=== PATIENT | male | born 1960 | race Caucasian/White ===

== ENCOUNTER 2016-11-12 19:59 | Observation (INO) | payer MEDICARE, MEDICAID ==
[~2016-11-12] VITALS: Ht 179.1 cm; Wt 111.7 kg
[2016-11-12 20:06] VITALS: BP 146/94; PULSE 82; RESP 16; O2SAT 95
--- NOTE | 2016-11-12 20:16 | ED.REPORT ---
HPI-Stroke / CVA Nov 12, 2016 ED Provider: Dr. Pulido Pt is a 56 y/o male w/ a hx of CVA, [place] x2 s/p stenting, presenting to the ED with his girlfriend due to intermittent slurred speech onset 3 days ago. The pt has been experiencing slurred speech of waxing and waning severity for the past 3 days with an associated intermittent moderate-severe headache for 2 days, mild left facial droop, mild confusion without disorientation. According to his girlfriend, his speech was unintelligible yesterday and this morning and much improved at time of interview. He denies focal numbness or weakness, aphasia, problem walking, vision change, CP, SOB, abdominal pain, fever, chills. He is not anticoagulated, he missed his aspirin dose today. Nursing Notes Stated Complaint: POSSIBLE STROKE SYMPTOMS/SLURRING WORDS Chief Complaint: Stroke Symptoms Nursing Notes Reviewed: Yes Allergies: Coded Allergies: Penicillins (Verified Allergy, Unknown, 11/12/16) Sulfa (Sulfonamide Antibiotics) (Verified Allergy, Unknown, 11/12/16) Scheduled Aspirin Chew (Aspirin Chew) 81 Mg Chew 81 MG PO DAILY Atorvastatin (Lipitor) 80 Mg Tablet 80 MG PO DAILY Fenofibrate Nanocrystallized (Fenofibrate) 145 Mg Tablet 145 MG PO DAILY Haloperidol (Haloperidol) 10 Mg Tablet 10 MG PO BID (Reported) Metoprolol Succinate ER (Metoprolol Succinate ER) 50 Mg Tab.er.24h 50 MG PO DAILY Quetiapine Fumarate (Quetiapine Fumarate) 100 Mg Tablet 100 MG PO HS (Reported) Scheduled PRN Clonazepam (Clonazepam) 1 Mg Tablet 1 MG PO BID PRN PRN For Anxiety (Reported) Nitroglycerin SL (Nitroglycerin SL) 0.4 Mg Tab.subl 0.4 MG SL q15 min PRN PRN pa PRN for chest pain, may repeat every 15 minutes 3. General Time Seen by Provider: 20:16 Chief Complaint Slurred speech Hx Obtained From: Patient, Spouse Arrived By: Walk-in Time last known well 11/09/16 Sudden in Onset?: No Symptom Duration: Waxes and wanes Progression Since Onset: Intermittent Location: : Head Quality: Aching Severity: Current: Mild Severity: Maximum: Moderate Risk Factors NIH Stroke Scale Level of Consciousness: Alert and responsive (0) Ask Month & Age: Both questions right (0) Open/Close Eyes/Hand Manager Spanish: Performs both tasks (0) Horizontal EO Movements: None (0) Visual Rios: No visual loss (0) Facial Palsy: Minor paralysis (1) Right Arm Motor Drift (10s): No drift 10 sec (0) Left Arm Motor Drift (10s): No drift 10 sec (0) Right Leg Motor Drift (5s): No drift 5 sec (0) Left Leg Motor Drift (5s): No drift 5 sec (0) Limb Ataxia FNF/Heel-Cornejo: No ataxia (0) Sensation (Arms/Legs/Face): No sensory loss (0) Language Aphasia: No aphasia, normal (0) Dysarthria: Slurring intelligible (1) Extinction/Inattention: No exctinct/inattent (0) NIHSS Score: 2 Time NIHSS Performed: 20:51 Date NIHSS Performed: Nov 12, 2016 Past Medical History Past Medical History Strokes [place] x2 CAD s/p stents x2 Schizophrenia Hx childhood seizures Past Surgical History Cardiac stents x2 Smoking History Former Smoker Social History Alcohol Use: Denies alcohol use Drug Use: THC Ambulatory Status Independent Review of Systems Review of Systems Note: + left facial droop Constitutional: Denies: Chills, Fever Respiratory: Denies: Shortness of breath Cardiovascular: Denies: Chest pain GI: Denies: Abdominal pain Neurologic: Reports: Confusion, Headache, Slurred speech, Denies: Abnormal movement, Bladder dysfunction, Bowel dysfunction, Change LOC , Dizziness, Focal weakness, Lightheaded, Numbness, Problem walking, Seizure, Shaking, Spinning sensation, Syncope, Unable to speak, Weakness Complete sys rev & neg: except as marked. Physical Exam Initial Vital Signs Initial VS: Reviewed, Vital signs normal ENT: Mucous membranes moist, Conjunctiva normal, No scleral icterus Abdomen / GI: Soft, Non-tender, No guarding, No rebound, No distention Extremities: Vascular intact, Neuro intact, No swelling, No tenderness Skin: Warm, Dry, No cyanosis Psychiatric: Mood/affect normal, Behavior normal, Normal thought content General/Constitutional: Awake, Alert, No acute distress, Cooperative, Not toxic appearing Head / Eyes: Atraumatic, Normocephalic, PERRL, EOMI Neck: Atraumatic, Supple, Full range of motion Respiratory / Chest: Atraumatic, Breath sounds NL, Breath sounds = bilat, No respiratory distress, No rales, No rhonchi, No wheezing, No retractions, No stridor, No chest tenderness, No chest wall deformity, No crepitus Cardiovascular: Heart rate NL, Regular rhythm, Heart sounds NL, No gallop, No murmurs, No rubs, Cap refill not delayed, Peripheral circulation NL Neurologic: Oriented X3, No sensory deficits, Cerebellar NL, Memory NL See NIH stroke scale. Interpretation & Diagnostics Lab Results Interpretation Test 11/12/16 20:40 11/12/16 22:10 White Blood Count 7.4th/mm3 (3.8-10.1) Red Blood Count 5.18mil/mm3 (4.40-5.80) Hemoglobin 15.4g/dL (13.8-17.2) Hematocrit 44.2% (41.0-50.0) Mean Corpuscular Volume 85.3fL (81-100) Mean Corpuscular Hemoglobin 29.7pg (27.0-35.0) Mean Corpuscular Hemoglobin Concent 34.8% (32.0-37.0) Red Cell Distribution Width 12.9% (12.3-15.4) Platelet Count 250bil/L (150-400) Neutrophils (%) (Auto) 54.7% (40-74) Lymphocytes (%) (Auto) 33.2% (14-46) Monocytes (%) (Auto) 9.5% (4-12) Eosinophils (%) (Auto) 2.0% (0-5) Basophils (%) (Auto) 0.3% (0-3) Prothrombin Time 10.4sec (8.1-12.5) Prothromb Time International Ratio 0.97ratio Activated Partial Thromboplast Time 30.3sec (22.8-33.0) Sodium Level 137mEq/L (134-144) Potassium Level 4.2mEq/L (3.5-5.2) Chloride Level 99mEq/L (97-108) Carbon Dioxide Level 23mmol/L (18-29) Blood Urea Nitrogen 13mg/dL (6-24) Creatinine 0.63mg/dL (0.76-1.27) Estimat Glomerular Filtration Rate 141mL/min (>59) Glucose Level 103mg/dL (60-99) Calcium Level 9.3mg/dL (8.5-10.1) Total Bilirubin 0.4mg/dL (0.0-1.2) Aspartate Amino Transf (AST/SGOT) 41U/L (0-50) Alanine Aminotransferase (ALT/SGPT) 51U/L (0-44) Alkaline Phosphatase 98U/L (25-150) Troponin T < 0.010ug/L (0.0-0.011) Total Protein 7.3g/dL (6.4-8.4) Albumin 4.0g/dL (3.4-5.0) Hold Kelsey Top Tube Received (Received) Alcohol, Quantitative < 10mg/dL (0-10) Urine Color Yellow (YELLOW) Urine Appearance Clear (CLEAR,HAZY) Urine pH 6.0 (5.0-8.0) Urine Specific [place] 1.020 (1.003-1.035) Urine Protein Negativemg/dL (NEG,TRACE) Urine Glucose (UA) Negativemg/dL (NEGATIVE) Urine Ketones Negativemg/dL (NEGATIVE) Urine Occult Blood Trace (NEGATIVE) Urine Nitrite Negative (NEGATIVE) Urine Bilirubin Negative (NEGATIVE) Urine Urobilinogen Normalmg/dL (NORMAL) Urine Leukocyte Esterase Negative (NEGATIVE) Urine RBC 0-2/hpf (0-2) Urine WBC 0-5/hpf (0-5) Urine Epithelial Cells Occasional/hpf (NONE-MOD) Urine Crystals None seen (NONE SEEN) Urine Bacteria None/hpf (NONE-FEW) Urine Hyaline Casts None/lpf (NONE) Urine Granular Casts None seen (NONE SEEN) Urine Waxy Casts None seen (NONE SEEN) Urine Red Blood Cell Casts None seen (NONE SEEN) Urine White Blood Cell Casts None seen (NONE SEEN) Urine Mucus None seen (None Seen) Urine Trichomonas None seen (NONE SEEN) Urine Yeast None (NONE SEEN) Urine Culture Reflexed Not indicated ECG Interpretation Time: 20:58 Interpreted by: ED physician Normal ECG Interpretation: Normal ECG w/ rate of... (73), Normal rate, Normal sinus rhythm, No acute ischemic changes, Normal QRS, Normal axis, Normal intervals, Adequate tracing CT Head Interpretation IMPRESSION: No acute intracranial disease process. Dictated by: Ashanti Espinosa MD, PhD on 11/12/2016 at 20:59 Approved by: Ashanti Espinosa MD, PhD on 11/12/2016 at 20:59 Study: Head CT no contrast Interpretation / Wet Read by: Interpret - Radiologist Re-Eval/Medical Decision Med Decision/Clinical Course 56-year-old male who is a vasculopath presents with significant other who notes a significant decompensation in his speech over the past several days. She was completely unable to understand him yesterday and notes a left-sided facial droop. He complains of a splitting headache for the past 2 days. Initial imaging is negative here but patient warrants further evaluation and workup given his medical history and symptoms today. Source of Hx: Old records Re-Evaluation/Progress : Time of Eval: 22:36 Re-Evaluation/Progress Note: Pt rechecked. He is feeling better. Discussed negative imaging study and desire for admission for further neurological evaluation. Pt understands and agrees with plan for admission. All questions addressed. Consultation : Referral / Consult Name: Ankita Boyce MD Consulted With: Hospitalist Call Returned at: 22:00 Home Health Rn: Will see patient, Agrees with eval, Agrees with plan, Accepts admit Counseled Regarding: Diagnosis, Lab results, Need for admission Patient Discharge & Departure Impression: Primary Impression: CVA (cerebral vascular accident) CVA mechanism: unspecified Qualified Code: I63.9 - Cerebral infarction, unspecified Disposition: ADMITTED TO HOSPITAL Discharge Condition All VS Reviewed: Yes Condition: Stable Scribe Attestation Portions of this note were transcribed by Samir Llanes. I, Dr. Pulido personally performed the history, physical exam and medical decision-making; I reviewed and confirmed the accuracy of the information in the transcribed note. Signed by Ayde Bui, 11/12/16 - 2019 Josiah Pulido DO Nov 12, 2016 20:16 SAMIR LLANES Nov 12, 2016 20:20
[2016-11-12 20:50] LABS: BASOPHILS % (AUTO) 0.3 % (0-3); MONOCYTES % (AUTO) 9.5 % (4-12); Mean Corpuscular Hemoglobin 29.7 pg (27.0-35.0); Mean Corpuscular Volume 85.3 fL (81-100); NEUTROPHILS % (AUTO) 54.7 % (40-74); Platelet Count 250 bil/L (150-400)
--- NOTE | 2016-11-12 21:01 | DRSVH ---
PROCEDURE: CT BRAIN WITHOUT CONTRAST ([id number]) INDICATIONS: slurred speech x3 days TECHNIQUE: Noncontrast 4.5 mm thick angled axial sections acquired from the foramen magnum to the vertex, with c oronal reformats. COMPARISON: None. FINDINGS: Image quality: Excellent. CSF spaces: Basal cisterns are patent. No extra-axial fluid collections. The ventricles are symmet juanjo in size and shape. Brain: No intracranial bleeds or masses. There is cerebral volume loss for age, with resultant vent ricular and sulcal prominence. Valdes-white matter differentiation is normal. There is intracranial in ternal carotid artery atherosclerosis. Skull and face: Calvarium and visualized facial bones appear intact, without suspicious lesions. Sinuses: Visualized sinuses and mastoids are clear. IMPRESSION: No acute intracranial disease process. Dictated by: Ashanti Espinosa MD, PhD on 11/12/2016 at 20:59 Approved by: Ashanti Espinosa MD, PhD on 11/12/2016 at 20:59
[2016-11-12 21:09] LABS: INR 0.97 ratio
[2016-11-12 21:22] LABS: TROPONIN T < 0.010 ug/L (0.0-0.011)
[2016-11-12] MEDS ORDERED: Alum-Mag Hydrox-Simeth 30 mL Suspension PO ONE (21:40)
[2016-11-12 22:53] LABS: APPEARANCE,URINE CLEAR (CLEAR,HAZY); COLOR,URINE YELLOW (YELLOW); OCCULT BLOOD,URINE TRACE (NEGATIVE); UROBILINOGEN,URINE NORMAL (NORMAL)
[2016-11-12] MEDS ORDERED: Ondansetron 2 mg/mL 2 mL Inj IVPUSH PRN (23:00)
[2016-11-12] MEDS ORDERED: Alum-Mag Hydrox-Simeth 30 mL Suspension PO PRN ×2 (23:00→23:55)
[2016-11-12 23:40] VITALS: BP 106/81; PULSE 75; RESP 14; O2SAT 93
[2016-11-12] MEDS ORDERED: Polyethylene Glycol (PEG) 17 Gm Powder PO PRN (23:55)
[2016-11-12] MEDS ORDERED: Ondansetron 2 mg/mL 2 mL Inj IV PRN (23:55)
[2016-11-12 23:58] VITALS: BP 148/90; PULSE 71; RESP 16; O2SAT 95
[2016-11-13] VITALS (8 sets, daily range): BP systolic 129–145; BP diastolic 77–95; PULSE 71–96; RESP 18–22; O2SAT 93–95
--- NOTE | 2016-11-13 01:17 | PCM.HPMED ---
Subjective Date of Service Nov 13, 2016 Primary Provider: Admitting Physician: Ankita Boyce MD Primary Care Physician: Jese Gonzalez MD Attending Physician: Ankita Boyce MD Admit Status: From the Emergency Department Chief Complaint: Slurred speech for 3 days History of Present Illness: Pt is a 56 y/o male w/ a hx of CVA x2 requiring rehabilitation, [place] x2 s/p stenting, and schizophrenia who presented to the ED with his girlfriend due to intermittent slurred speech onset 3 days ago. The pt has been experiencing slurred speech of waxing and waning severity for the past 3 days and used a cell phone to communicate with his girlfriend. He had an associated intermittent moderate-severe headache for 2 days (points to the top of his head) , mild left facial droop, and mild confusion without disorientation. According to his girlfriend, his speech was unintelligible yesterday and this morning and much improved at time of interview although she does not believe he is completely at baseline yet. He denies focal numbness or weakness, aphasia, problem walking, vision change, CP, SOB, abdominal pain, fever, chills. He recently was without his medications for 4 days because his roommates kicked him out of the home and did not give him his possessions. In the ED, his vitals were 36.6; 82; 16; 146/94; 95% on room air. CBC normal, chemistry with mildly elevated ALT of 51; coags normal; troponin negative; urine with no signs of infection; Alcohol negative. Review of Systems: As per HPI, otherwise negative Allergies Coded Allergies: Penicillins (Verified Allergy, Unknown, 11/12/16) Sulfa (Sulfonamide Antibiotics) (Verified Allergy, Unknown, 11/12/16) Home Medications From patient's hand-written list: Note: Patient uses [facility], please call to verify in am: Fenofibrate Metoprolol Atorvastatin Haloperidol Seroquel Aspirin . PMH Strokes [place] x2 CAD s/p stents x2 Schizophrenia Hx childhood seizures Surgical History Cardiac stents x2 Family History Mother with CAD Social History Hx Alcohol Use: No Hx Substance Use: Yes (marijuana) Hx Tobacco Use: Yes Smoking Status: Former Smoker Living Arrangement: with Friends/Roommate Exam Vital Signs Vital Sign - Last Date Time Temp Pulse Resp B/P Pulse Ox O2 Delivery O2 Flow Rate FiO2 11/12/16 23:58 36.6 71 16 148/90 95 Room Air Exam General: alert, oriented x3, cooperative, no acute distress, asked his girlfriend to tell his HPI because "she can remember it better" Eyes: PERRL, scleral anicteric Mouth: mouth normal, mucous membranes moist/pink Neck: supple, no thyromegaly Chest & Lungs: clear to auscultation, no adventitious breath sounds, no crackles , no wheeze Cardiovascular: no murmurs/rubs/gallops, regular rate/rhythm Pulses: Radial (present and equal), Dorsalis Pedi (present and equal) Abdomen: soft, non-tender, non-distended, normoactive bowel tones Musculoskeletal: No swollen or erythematous joints Extremities: no edema, no cyanosis, no clubbing Skin: No erythematous areas Neurological: CN II-XII intact, 5/5 strength UE & LE & equal B/L; alternating hand slap normal; finger to nose normal; speech eligible but very mildly slurred ; gait not tested . Lab and Diagnostics Labs Troponin T <0.010; coags normal Result Diagram: 11/12/16203911/12/162039 X-Rays, CTs and MRIs Date of Service: 11/12/162013 PROCEDURE: CT BRAIN WITHOUT CONTRAST ([id number]) INDICATIONS: slurred speech x3 days TECHNIQUE: Noncontrast 4.5 mm thick angled axial sections acquired from the foramen magnum to the vertex, with coronal reformats. COMPARISON: None. FINDINGS: Image quality: Excellent. CSF spaces: Basal cisterns are patent. No extra-axial fluid collections. The ventricles are symmetric in size and shape. Brain: No intracranial bleeds or masses. There is cerebral volume loss for age , with resultant ventricular and sulcal prominence. Valdes-white matter differentiation is normal. There is intracranial internal carotid artery atherosclerosis. Skull and face: Calvarium and visualized facial bones appear intact, without suspicious lesions. Sinuses: Visualized sinuses and mastoids are clear. IMPRESSION: No acute intracranial disease process. Dictated by: Ashanti Espinosa MD, PhD on 11/12/2016 at 20:59 . 12-lead ECG Sinus rhythm with rate 73; QTc 432; No st changes; left axis deviation. Resident Lulu Assessment & Plan Pt is a 56 y/o male w/ a hx of CVA x2 requiring rehabilitation, [place] x2 s/p stenting, and schizophrenia who presented to the ED with his girlfriend due to intermittent slurred speech onset 3 days ago. Note: patient has a hand-written note of home medications with no doses. Uses [facility]. Day team to verify. CVA, present on admission, acute - Prior strokes x2 - CT showed no acute process - swallow evaluation prior to eating - MR stroke protocol ordered for the am - echocardiogram ordered for the am - PT evaluation - OT evaluation - aspirin, statin, home dose to be determined Schizophrenia, present on admission, chronic - continue home medications once verified - currently appears controlled Dyslipidemia, present on admission, chronic - continue home medication once verified - lipid panel ordered for am Hypertension, present on admission, chronic - Hold home medication and allow permissive hypertension CAD, present on admission, chronic - s/p 2 stents - troponin negative x 1 - EKG with no acute changes - not complaining of chest pain - Acetaminophen as needed for mild pain/fever/headache - Bowel regimen as needed - Antiemetic as needed Patient admitted under observation status with expected length of stay < 2 midnights CODE STATUS: Full, verified with patient GI Prophylaxis: Proton Pump Inhibitor VTE Prophylaxis: Sub-Q Heparin (Unfractionated) Resuscitation Status: CPR: Attempt Resuscitation Attending Statement Pt seen and examined by myself and agree with above plan. Dorothea Lawson DO Nov 13, 2016 01:17 Ankita Boyce MD Nov 13, 2016 06:20
--- NOTE | 2016-11-13 02:09 | NUR ---
Admission Pt arrived to room 3015 alert and oriented x3, ambulatory, and with no complaints of pain. Pt was conversing in full sentences but did have a noticeable amount of slurring and mumbling. Pt was told he would be NPO due to failed swallow screen per ED RN report. Pt was able to answer all admission questions appropriately, but eventually requested pain medication for back pain. Reports taking Percocet at home. notified and wrote order for percocet but Pt was asleep by time order entered by pharmacy. Will check back with Pt at later time.
--- NOTE | 2016-11-13 02:14 | NUR ---
Coughing Pt instructed on arrival that he would be NPO per policies and Pt was upset and said he had to eat food. Pt was educated regarding risk for aspiration and told he could eat if he signed a diet against medical advice. Pt said he wanted to sign and eat any way. Pt was observed to be coughing occasionally while eating. Pt was again reminded of risk for aspiration and that coughing could be a sign of aspiration. Pt nodded his head but continued eating. Pt has not been observed coughing while drinking liquids, only while eating solid food.
[2016-11-13] MEDS: Heparin 5,000 Unit/mL Inj SUBQ SCH ×3 (09:16→23:58)
[2016-11-13] MEDS: oxyCODONE-Acetamin 10-325 mg Tablet PO PRN ×3 (09:17→21:06)
--- NOTE | 2016-11-13 12:31 | DRSVH ---
PROCEDURE: MRI STROKE PROTOCOL ([id number]) Pre- and post-contrast brain MRI, non-contrast brain MR angiogram, pre- and postcontrast neck MR lexa ogram INDICATIONS: CVA with 2 prior CVAs TECHNIQUE: Brain: Noncontrast axial T1 spin echo, axial T2 fast spin echo, sagittal and axial FLAIR, coronal T2 fast spin echo, axial gradient echo, axial diffusion and ADC through the brain. After the administr ation of contrast, axial 3D VIBE of the cranial vasculature and brain. Brain MRA: Non-contrast 3-D time of flight MR angiogram, with multiple lzhtemq-sphozovqs-flozoxtgyd (MIP) reformats performed. Neck MRA: Axial and sagittal TruFISP through the neck. Coronal dynamic MR angiogram during administ ration of contrast in the arterial and venous phases, with 3-dimenstional cdqydji-qlyylrecb-rbpbfvvmn n (MIP) reformats constructed from subtraction images. COMPARISON: None. FINDINGS: Image quality: Excellent. BRAIN: CSF spaces: Ventricles are normal in size and shape. Basal cisterns are patent. No extra-axial flu id collections. Brain: No intracranial bleeds or mass effects. Valdes-white matter interface is normal. Diffusion we ighted images show no acute ischemic insults. Brainstem appears normal. Normal intravascular flow v oids are present. No abnormal intracranial enhancement. Skull and face: Calvarial marrow signal is normal. Orbits appear normal. Sinuses: Sinuses and mastoids are clear. BRAIN MR ANGIOGRAM: Anterior circulation: Intracranial internal carotid arteries are normal in size and enhancement. Th e flow within the paired anterior cerebral arteries is normal and symmetric. The flow within the mid dle cerebral arteries is normal and symmetric. The anterior communicating artery is seen. No stenos es, occlusions, or aneurysms. Posterior circulation: The visualized portions of the vertebral arteries demonstrate normal caliber, and join to form a normal appearing basilar artery. Incidental noted right posterior communicating artery visualized. The flow within the posterior cerebral arteries is normal and symmetric. No steno ses, occlusions, or aneurysms. NECK MR ANGIOGRAM: Carotids: Great vessels demonstrate a conventional anatomy as they arise from the aortic arch. The origins of the common carotid arteries appear patent. The calibers and courses of both common caroti d arteries are normal. Minimal 10% focal narrowing of the proximal left ICA Posterior circulation: The origin of the right vertebral artery is not well-seen however the remainin g right vertebral artery appears unremarkable The left vertebral origin is tortuous although appears grossly patent. More superior portions of both vertebral arteries demonstrate normal course and caliber, and join to form a normal appearing basilar artery. Miscellaneous: Subclavian arteries appear patent. Pre-contrast images through the neck show no soft tissue abnormalities. IMPRESSION: BRAIN MRI: No evidence of acute ischemia. BRAIN MR ANGIOGRAM: No focal stenosis or occlusion NECK MR ANGIOGRAM: Mild 10% focal stenosis of the left proximal internal carotid artery. No right internal carotid artery stenosis. The origin of the right vertebral artery not visualized possibly occluded although this could be esteban factual given the appearance of the source images. Recommend clinical correlation. The remaining righ t vertebral artery appears patent and grossly unremarkable The estimate of stenosis included in the report of the imaging study was calculated using the NASCET method Dictated by: Wilmer Kraft M.D. on 11/13/2016 at 12:29 Approved by: Wilmer Kraft M.D. on 11/13/2016 at 12:29
[2016-11-13] MEDS ORDERED: QUET100T69 PO (13:30)
[2016-11-13] MEDS ORDERED: KLO1T PO (13:30)
[2016-11-13] MEDS ORDERED: METO-272 PO (13:30)
[2016-11-13] MEDS ORDERED: HALO10TA PO (13:30)
[2016-11-13] MEDS ORDERED: ATOR80TA PO (13:30)
[2016-11-13] MEDS ORDERED: FENO145T19 PO (13:30)
--- NOTE | 2016-11-13 14:54 | NUR ---
Evaluation completed. Please go to "Notes" then click on "Assessments and Notes" (bottom left corner of screen). Then select appropriate discipline tab on top of screen.
--- NOTE | 2016-11-13 16:05 | NUR ---
Social Work-initial assessment/readiness for discharge: Data:See initial assessment. Pt is a 56 y/o male who was admitted on 11/12/16 for CVA per H&P. Pt's insurance is [employer] and PCP is Jese Gonzalez MD. EMR Reviewed. SW met with pt and SO at bedside to discuss discharge planning, SW role explained. Pt currently resides in his truck, but can stay with SO's daughter occasionally. Pt does not use any DME and drives. Pt has no HH or SNF history. Pt has no [facility] care or [facility] benefits. SW discussed DPOA/ advanced directive paperwork, pt has not completed this and is not interested in a copy. PT has cleared pt for home, no needs. Pt's SO to provide transport home at discharge. No anticipated discharge needs. SW will continue to follow if needs arise. Assessment:Pt who is independent at baseline. Plan:Pt to discharge back to his truck when medically stable via POV. No anticipated discharge needs. SW will continue to follow if needs arise. TALHA Kumari Addendum: 11/13/16 at 1608 by PATRICE MONIQUE Amended: Links added.
--- NOTE | 2016-11-13 17:39 | NUR ---
STROKE EVALUATION P-Patient experiencing slurred speech on admission. I-CT and MRI negative, PT eval negative, patient signed waver to eat and drink. E-Patient showing no slurred speech, imaging and all evaluations so far negative.
--- NOTE | 2016-11-13 18:55 | PCM.PNMED ---
Subjective Date of Service Nov 13, 2016 Subjective Patient states his symptoms improved. He has only minor slurring left, no facial droop left, and his confusion is completely gone. Per patient's girlfriend, he is "almost back to normal". Patient denies headache, vision changes, weakness. Exam Vital Signs Vital Sign - Last Date Time Temp Pulse Resp B/P Pulse Ox O2 Delivery O2 Flow Rate FiO2 11/13/16 15:15 36.7 93 18 145/93 93 Room Air Intake and Output 11/12/16 11/12/16 11/13/16 Cumulative From/Thru 15:00 23:00 07:00 11/12/16 20:06 - 11/13/16 06:30 Intake Total 470 ml 470 ml Output Total 0 ml 0 ml Balance 470 ml 470 ml Intake Oral 470 ml 470 ml Output Urine Total 0 ml 0 ml # Bowel Movements 0 0 Exam General: alert, oriented x3, cooperative, no acute distress Eyes: PERRL, scleral anicteric Mouth: mouth normal, mucous membranes moist/pink Neck: supple, no thyromegaly Chest & Lungs: clear to auscultation, no adventitious breath sounds, no crackles , no wheeze Cardiovascular: no murmurs/rubs/gallops, regular rate/rhythm Pulses: Radial (present and equal), Dorsalis Pedi (present and equal) Abdomen: soft, non-tender, non-distended, normoactive bowel tones Musculoskeletal: No swollen or erythematous joints Extremities: no edema, no cyanosis, no clubbing Skin: No erythematous areas Neurological: CN II-XII intact, 5/5 strength UE & LE & equal B/L IVs and Medications Medications Reviewed: Medications were reviewed in detail Lab and Diagnostics Result Diagram: 11/12/16203911/12/162039 X-Rays, CTs and MRIs PROCEDURE: CT BRAIN WITHOUT CONTRAST ([id number]) INDICATIONS: slurred speech x3 days IMPRESSION: No acute intracranial disease process. Dictated by: Ashanti Espinosa MD, PhD on 11/12/2016 at 20:59 PROCEDURE: MRI STROKE PROTOCOL ([id number]) Pre- and post-contrast brain MRI, non-contrast brain MR angiogram, pre- and postcontrast neck MR angiogram INDICATIONS: CVA with 2 prior CVAs IMPRESSION: BRAIN MRI: No evidence of acute ischemia. BRAIN MR ANGIOGRAM: No focal stenosis or occlusion NECK MR ANGIOGRAM: Mild 10% focal stenosis of the left proximal internal carotid artery. No right internal carotid artery stenosis. The origin of the right vertebral artery not visualized possibly occluded although this could be artifactual given the appearance of the source images. Recommend clinical correlation. The remaining right vertebral artery appears patent and grossly unremarkable The estimate of stenosis included in the report of the imaging study was calculated using the NASCET method Dictated by: Wilmer Kraft M.D. on 11/13/2016 at 12:29 Approved by: Wilmer Kraft M.D. on 11/13/2016 at 12:29 . 12-lead ECG Sinus rhythm with rate 73; QTc 432; No st changes; left axis deviation. Resident Lulu Assessment & Plan Pt is a 56 y/o male w/ a hx of CVA x2 requiring rehabilitation, VT x2 s/p stenting, and schizophrenia who presented to the ED with his girlfriend due to intermittent slurred speech onset 3 days ago. Note: patient has a hand-written note of home medications with no doses. Uses [facility]. Nurse has been trying to verify. 1. CVA, present on admission, acute - Prior strokes x2 - CT showed no acute process - Patient signed waver to eat and drink - MRI negative - Echocardiogram pending - PT evaluation negative - OT evaluation pending - Aspirin, statin, home dose to be determined 2. Schizophrenia, present on admission, chronic - Patient reports he dose monthly Haloperidol injection; he just had his dose - Appears to be well controlled 3. Dyslipidemia, present on admission, chronic - Continue home medication once verified - Lipid panel revealed elevated triglycerides at 473 and cholesterol at 207 - Consider therapy 4. Hypertension, present on admission, chronic - Hold home medication and allow permissive hypertension 5. CAD, present on admission, chronic - s/p 2 stents - troponin negative x 1 - EKG with no acute changes - not complaining of chest pain - Acetaminophen as needed for mild pain/fever/headache - Bowel regimen as needed - Antiemetic as needed Patient admitted under observation status with expected length of stay < 2 midnights CODE STATUS: Full, verified with patient GI Prophylaxis: Proton Pump Inhibitor VTE Prophylaxis: Sub-Q Heparin (Unfractionated) Resuscitation Status: CPR: Attempt Resuscitation Attending Statement I reviewed this patients chart, discussed the plan of care with the resident and examined the patient. I agree with the above physical exam and assessment and plan. DALJIT JANE DO Nov 13, 2016 18:05 Pj Murrell DO Nov 14, 2016 16:31
[2016-11-14 00:58] VITALS: BP 111/71; PULSE 67; RESP 16; O2SAT 94
--- NOTE | 2016-11-14 03:17 | NUR ---
activity patient up in room independently. no neuro deficits. steady gait.
[2016-11-14] MEDS: oxyCODONE-Acetamin 10-325 mg Tablet PO PRN ×2 (04:21→12:13)
[2016-11-14 05:19] VITALS: BP 130/82; PULSE 72; RESP 18; O2SAT 97
[2016-11-14 05:22] VITALS: PULSE 83
[2016-11-14 08:00] VITALS: PULSE 66
[2016-11-14 08:07] VITALS: BP 147/116; PULSE 68; RESP 18; O2SAT 96
[2016-11-14] MEDS: Heparin 5,000 Unit/mL Inj SUBQ SCH (08:17)
[2016-11-14] MEDS ORDERED: MeTOProlol XL 50 mg ER24 Tablet PO SCH (09:00)
[2016-11-14] MEDS ORDERED: ASPI81TA3 PO (11:48)
--- NOTE | 2016-11-14 11:49 | PCM.DIMED ---
Discharge Instructions Date of Service Nov 14, 2016 Dates of Hospitalization Nov 12, 2016 at 23:51 Discharge Diagnosis Discharge Diagnosis TIA-resolved Diet No restrictions Activity No restrictions Call your provider Shortness of breath, Bleeding, Chest pain, Weakness (unilateral) Patient Instructions Follow-up with PCP in: 1 week Pj Murrell DO Nov 14, 2016 11:49
[2016-11-14] MEDS ORDERED: NITR0.4T6 SL (12:59)
[2016-11-14] MEDS ORDERED: FENO145T19 PO (12:59)
[2016-11-14] MEDS ORDERED: ATOR80TA PO (12:59)
[2016-11-14] MEDS ORDERED: METO-272 PO (12:59)
--- NOTE | 2016-11-14 13:17 | DRSVH ---
[facility] [address] [place] [address] Echocardiogram Report Name: LIZZETTE PERALES WStudy Date: 11/14/2016 Height: 70 in Hospital Exam Location: [facility] Weight: 246 lb Gender: Male BSA: 2.3 m2 : 1960 Age: 56 yrs BP: 147/116 mmHg Reason For Study: CVA Ordering Physician: HOSPITALIST MASTERerformed By: Joycelyn Benitez Referring Physician: REBEKA PERKINS Interpretation Summary 1) Borderline concentric left ventricular hypertrophy with normal size, wall motion, and systolic function (EF 65-70%). 2) Normal right ventricular size and function. 3) No significant valvular abnormalities. 4) Ascending aorta upper limits of normal size (diameter 3.6cm). 5) Findings consistent with hypertensive heart disease. 6) No prior Echo available for comparison. Procedure: A two-dimensional transthoracic echocardiogram with color flow and Doppler was performed. The study quality was technically adequate. There is no prior echocardiogram noted for this patient. Bubble study is performed. The patient was in normal sinus rhythm during the exam. Left Ventricle: The left ventricle is normal in size. There is borderline concentric left ventricular hypertrophy. Left ventricular systolic function is normal without focal wall motion abnormalities. The ejection fraction is estimated to be 65-70%. Spectral Doppler of the mitral valve shows a normal E/A wave ratio. Assessment of diastolic parameters indicates normal left ventricular diastolic function and normal filling pressures. Right Ventricle: The right ventricle is normal in size and function. Atria: Both atria are normal in size. Injection of contrast documented an interatrial shunt. A patent foramen ovale is present. Mitral Valve: The mitral valve is normal in structure and function. There is trace mitral regurgitation. Aortic Valve: The aortic valve is trileaflet. The aortic valve opens well. There is no aortic valve stenosis. No aortic regurgitation is present. Tricuspid Valve: The tricuspid valve leaflets are thin and pliable. There is a trace or physiologic amount of tricuspid regurgitation. Pulmonary artery pressures cannot be estimated because of the lack of a measurable TR jet velocity. Pulmonic Valve: The pulmonic valve is not well visualized. There is no pulmonic valvular regurgitation. Great Vessels: The aortic root is normal size. The ascending aorta is at the upper limits of normal in size. The pulmonary artery is not well visualized, but is probably normal size. The IVC is of normal diameter and collapses greater than 50% with a sniff. This suggests a low right atrial pressure of 3 mm Hg. Pericardium/ Pleura There is no pericardial effusion. There is no pleural effusion. MMode/2D Measurements & Calculations LVIDd: 5.3 cm LA dimension: 4.9 cm RA long axis LVOT diam: 2.3 cm LVIDs: 2.7 cm AoV Openin.5 cm FS: 49.3 % LA A2 area: 20.7 cm RA area Ao root diam: 3.1 cm EPSS: 0.62 cm LA A4 area: 24.6 cm asc Aorta Diam IVSd: 1.0 cm LA length (vol) : 19.1 cm LVPWd: 1.1 cm RA vol Ao Arch Diam LA vol: 73.1 ml : 55.7 ml (Proximal trans.) LA vol index RA : 24.4 mm/ RVDd major IVC diam: 2.1 cm RVDd minor : 3.6 cm LV aquino. diameter/BSALV sys. diameter/BSA (cm/m^2): 2.3 (cm/m^2): 1.2 Doppler Measurements & Calculations Ao V2 max MV E max ted MV E/A: 1.5 PA V2 max : 147.7 cm/sec : 72.3 cm/sec Med Peak E' Ted : 105.0 cm/sec Ao max PG MV A max ted PA mean PG : 8.7 mmHg : 49.5 cm/sec E/E' med: 7.7 Ao mean PG MV P1/2t: 69.9 msec Lat Peak E' Ted PA Accel Time : 0.08 sec LVOT Max Ted E/E' lat: 5.8 : 120.9 cm/sec Pulm A Revs Dur ADRIA(I,D): 3.0 cm sev ratio MV A dur: 0.13 sec MV dec time MV P1/2t max ted Ao V2 mean LV V1 max PG : 0.24 sec : 114.6 cm/sec Ao V2 VTI: 31.8 cm LV V1 VTI MVA(P1/2t): 3.1 cm2 : 21.9 cm ADRIA(V,D): 3.5 cm2 PA V2 mean ADRIA indexed to BSA Pulm Manda Laras Dur - MV A : 71.2 cm/sec (cm^2/m^2): 1.3 Dur: -0.03 msec Reading Physician:01:16 PM
--- NOTE | 2016-11-14 13:54 | NUR ---
DISCHARGE Patient discharged at 1400, girlfriend will drive him home. Patient denies pain, shortness of breath, and nausea. No slurred speech noted, CVA booklet and care notes provided. Medications reviewed and new Rx given along with care notes to medications. IV removed intact, patient states "I have all my stuff". Patient made aware of signs of CVA and ID and too call 911 if concerned.
--- NOTE | 2016-11-14 16:13 | NUR ---
Social work-discharge: Data:EMR Reviewed. Pt is on day 2 of hospitalization for TIA per H&P. Pt is medically stable to discharge home today. PT has cleared pt for home. No discharge needs identified. All updated and agreeable to plan. Assessment:Pt who is independent at baseline. Plan:Pt to discharge home today via POV. No discharge needs identified. All updated and agreeable to plan. TALHA Kumari
--- NOTE | 2016-11-14 18:25 | PCM.DC.MED ---
Discharge Summary Date of Service Nov 14, 2016 Dates of Hospitalization Date of Hospital Admission Nov 12, 2016 at 23:51 Date of Discharge: Nov 14, 2016 Providers: Admitting Physician: Ankita Boyce MD Primary Care Physician: Jese Gonzalez MD Attending Physician: Ankita Boyce MD Diagnosis at Time of Discharge Diagnosis at Time of Discharge TIA-resolved Procedures XRay, CTs & MRIs PROCEDURE: CT BRAIN WITHOUT CONTRAST ([id number]) INDICATIONS: slurred speech x3 days IMPRESSION: No acute intracranial disease process. Dictated by: Ashanti Espinosa MD, PhD on 11/12/2016 at 20:59 PROCEDURE: MRI STROKE PROTOCOL ([id number]) Pre- and post-contrast brain MRI, non-contrast brain MR angiogram, pre- and postcontrast neck MR angiogram INDICATIONS: CVA with 2 prior CVAs IMPRESSION: BRAIN MRI: No evidence of acute ischemia. BRAIN MR ANGIOGRAM: No focal stenosis or occlusion NECK MR ANGIOGRAM: Mild 10% focal stenosis of the left proximal internal carotid artery. No right internal carotid artery stenosis. The origin of the right vertebral artery not visualized possibly occluded although this could be artifactual given the appearance of the source images. Recommend clinical correlation. The remaining right vertebral artery appears patent and grossly unremarkable The estimate of stenosis included in the report of the imaging study was calculated using the NASCET method Dictated by: Wilmer Kraft M.D. on 11/13/2016 at 12:29 Approved by: Wilmer Kraft M.D. on 11/13/2016 at 12:29 . ECG 12 Lead Sinus rhythm with rate 73; QTc 432; No st changes; left axis deviation. Resident Lulu Cardiac Echo Impression Echocardiograms 11/14/2016 Interpretation Summary 1) Borderline concentric left ventricular hypertrophy with normal size, wall motion, and systolic function (EF 65-70%). 2) Normal right ventricular size and function. 3) No significant valvular abnormalities. 4) Ascending aorta upper limits of normal size (diameter 3.6cm). 5) Findings consistent with hypertensive heart disease. 6) No prior Echo available for comparison. Brief History Pt is a 56 y/o male w/ a hx of CVA x2 requiring rehabilitation, CT x2 s/p stenting, and schizophrenia who presented to the ED with his girlfriend due to intermittent slurred speech onset 3 days ago. The pt has been experiencing slurred speech of waxing and waning severity for the past 3 days and used a cell phone to communicate with his girlfriend. He had an associated intermittent moderate-severe headache for 2 days (points to the top of his head) , mild left facial droop, and mild confusion without disorientation. According to his girlfriend, his speech was unintelligible yesterday and this morning and much improved at time of interview although she does not believe he is completely at baseline yet. He denies focal numbness or weakness, aphasia, problem walking, vision change, CP, SOB, abdominal pain, fever, chills. He recently was without his medications for 4 days because his roommates kicked him out of the home and did not give him his possessions. In the ED, his vitals were 36.6; 82; 16; 146/94; 95% on room air. CBC normal, chemistry with mildly elevated ALT of 51; coags normal; troponin negative; urine with no signs of infection; Alcohol negative. Hospital Course Pt is a 56 y/o male w/ a hx of CVA x2 requiring rehabilitation, CT x2 s/p stenting, and schizophrenia who presented to the ED with his girlfriend due to intermittent slurred speech onset 3 days ago. His symptoms resolved relatively quickly. His medications were optimized. He was placed continued on aspirin and statin. Echocardiogram as above. He was discharged home in stable condition and will follow-up with his PCP within one week, sooner if his condition worsened in anyway. Delineated problem list as below 1. CVA, present on admission, acute - Prior strokes x2 - CT showed no acute process - Patient signed waver to eat and drink - MRI negative - Echocardiogram pending - PT evaluation - OT evaluation - Aspirin, statin, home dose to be determined 2. Schizophrenia, present on admission, chronic - Patient reports he dose monthly Haloperidol injection; he just had his dose - Appears to be well controlled 3. Dyslipidemia, present on admission, chronic - Continue home medication once verified - Lipid panel revealed elevated triglycerides at 473 and cholesterol at 207 - Consider therapy 4. Hypertension, present on admission, chronic - Hold home medication and allow permissive hypertension 5. CAD, present on admission, chronic - s/p 2 stents - troponin negative x 1 - EKG with no acute changes - not complaining of chest pain Exam Vital Signs (Last) Date Time Temp Pulse Resp B/P Pulse Ox O2 Delivery O2 Flow Rate FiO2 11/14/16 08:07 36.5 68 18 147/116 96 Room Air Test 11/12/16 20:40 11/12/16 22:10 11/13/16 05:57 White Blood Count 7.4th/mm3 (3.8-10.1) Red Blood Count 5.18mil/mm3 (4.40-5.80) Hemoglobin 15.4g/dL (13.8-17.2) Hematocrit 44.2% (41.0-50.0) Mean Corpuscular Volume 85.3fL (81-100) Mean Corpuscular Hemoglobin 29.7pg (27.0-35.0) Mean Corpuscular Hemoglobin Concent 34.8% (32.0-37.0) Red Cell Distribution Width 12.9% (12.3-15.4) Platelet Count 250bil/L (150-400) Neutrophils (%) (Auto) 54.7% (40-74) Lymphocytes (%) (Auto) 33.2% (14-46) Monocytes (%) (Auto) 9.5% (4-12) Eosinophils (%) (Auto) 2.0% (0-5) Basophils (%) (Auto) 0.3% (0-3) Prothrombin Time 10.4sec (8.1-12.5) Prothromb Time International Ratio 0.97ratio Activated Partial Thromboplast Time 30.3sec (22.8-33.0) Sodium Level 137mEq/L (134-144) Potassium Level 4.2mEq/L (3.5-5.2) Chloride Level 99mEq/L (97-108) Carbon Dioxide Level 23mmol/L (18-29) Blood Urea Nitrogen 13mg/dL (6-24) Creatinine 0.63mg/dL (0.76-1.27) Estimat Glomerular Filtration Rate 141mL/min (>59) Glucose Level 103mg/dL (60-99) Calcium Level 9.3mg/dL (8.5-10.1) Total Bilirubin 0.4mg/dL (0.0-1.2) Aspartate Amino Transf (AST/SGOT) 41U/L (0-50) Alanine Aminotransferase (ALT/SGPT) 51U/L (0-44) Alkaline Phosphatase 98U/L (25-150) Troponin T < 0.010ug/L (0.0-0.011) Total Protein 7.3g/dL (6.4-8.4) Albumin 4.0g/dL (3.4-5.0) Hold Kelsey Top Tube Received (Received) Alcohol, Quantitative < 10mg/dL (0-10) Urine Color Yellow (YELLOW) Urine Appearance Clear (CLEAR,HAZY) Urine pH 6.0 (5.0-8.0) Urine Specific Ecru 1.020 (1.003-1.035) Urine Protein Negativemg/dL (NEG,TRACE) Urine Glucose (UA) Negativemg/dL (NEGATIVE) Urine Ketones Negativemg/dL (NEGATIVE) Urine Occult Blood Trace (NEGATIVE) Urine Nitrite Negative (NEGATIVE) Urine Bilirubin Negative (NEGATIVE) Urine Urobilinogen Normalmg/dL (NORMAL) Urine Leukocyte Esterase Negative (NEGATIVE) Urine RBC 0-2/hpf (0-2) Urine WBC 0-5/hpf (0-5) Urine Epithelial Cells Occasional/hpf (NONE-MOD) Urine Crystals None seen (NONE SEEN) Urine Bacteria None/hpf (NONE-FEW) Urine Hyaline Casts None/lpf (NONE) Urine Granular Casts None seen (NONE SEEN) Urine Waxy Casts None seen (NONE SEEN) Urine Red Blood Cell Casts None seen (NONE SEEN) Urine White Blood Cell Casts None seen (NONE SEEN) Urine Mucus None seen (None Seen) Urine Trichomonas None seen (NONE SEEN) Urine Yeast None (NONE SEEN) Urine Culture Reflexed Not indicated Triglycerides Level 473mg/dL (0-149) Cholesterol Level 207mg/dL (100-199) LDL Cholesterol, Calculated 79.400mg/dL (0-99) VLDL Cholesterol 94.600mg/dL HDL Cholesterol 33mg/dL (>39) Cholesterol/HDL Ratio 6.27 (0.0-4.4) Discharge Medications Discharge Medications Aspirin Chew (Aspirin Chew) 81 Mg Chew 81 MG PO DAILY Prescribed by: PJ MURRELL DO Atorvastatin (Lipitor) 80 Mg Tablet 80 MG PO DAILY Prescribed by: PJ MURRELL DO Fenofibrate Nanocrystallized (Fenofibrate) 145 Mg Tablet 145 MG PO DAILY Prescribed by: PJ MURRELL DO Haloperidol (Haloperidol) 10 Mg Tablet 10 MG PO BID (Reported) Metoprolol Succinate ER (Metoprolol Succinate ER) 50 Mg Tab.er.24h 50 MG PO DAILY Prescribed by: PJ MURRELL DO Quetiapine Fumarate (Quetiapine Fumarate) 100 Mg Tablet 100 MG PO HS (Reported) As needed Clonazepam (Clonazepam) 1 Mg Tablet 1 MG PO BID PRN PRN For Anxiety (Reported) Nitroglycerin SL (Nitroglycerin SL) 0.4 Mg Tab.subl 0.4 MG SL q15 min PRN PRN pa PRN for chest pain, may repeat every 15 minutes 3. Prescribed by: PJ MURRELL DO Followup Plan Discharge Diet: No restrictions Discharge Activity: No restrictions Follow-up with PCP in: 1 week Time spent 65 minutes Pj Murrell DO Nov 14, 2016 18:25
== END 2016-11-14 14:00 | disposition home or self-care (01) ==
LOC: SED 20:58 → MPC 23:51 → INTOOBSV 23:51
PROVIDERS: ADMIT Specialist; ATTEND Specialist
DX: G45.9 Transient cerebral ischemic attack, unspecified (principal); I10 Essential (primary) hypertension; E78.5 Hyperlipidemia, unspecified; I25.10 Atherosclerotic heart disease of native coronary artery without angina pectoris; Z95.818 Presence of other cardiac implants and grafts; I25.2 Old myocardial infarction; Z86.73 Personal history of transient ischemic attack (TIA), and cerebral infarction without residual deficits; F20.9 Schizophrenia, unspecified; Z79.82 Long term (current) use of aspirin
CPT/HCPCS: 36415; 70450; 70549; 70553; 80053; 80061; 81000; 81002; 84484; 85025; 85610; 85730; 97001; 99285; A9585; C8929; G0480; J1644